=== PATIENT | female | born 1960 | race Two or more races ===

== ENCOUNTER 2021-07-21 10:46 | Emergency (ER) | payer OTHER ==
[~2021-07-21] VITALS: Ht 162.6 cm; Wt 59.0 kg
[2021-07-21] MEDS ORDERED: FAMOTIDINE20 MG PO (11:08)
[2021-07-21] MEDS ORDERED: SUCRALFATE1 GM PO (11:08)
== END 2021-07-21 17:02 | disposition home or self-care (01) ==
LOC: ER 10:46
DX: K29.70 Gastritis, unspecified, without bleeding (principal); R10.13 Epigastric pain